=== PATIENT | male | born 1945 | race Caucasian/White ===

== ENCOUNTER 2017-03-20 09:42 | Day surgery (SDC) | payer OTHER ==
--- NOTE | 2017-02-23 10:46 | HP ---
PREOPERATIVE HISTORY AND PHYSICAL EXAM: DATE OF SURGERY/ADMISSION: 03/13/17 - [facility] AGE: 72. PROCEDURE: Left ring trigger finger release. WIRE TURNING MACHINE OPERATOR: Dr. Mead. CHIEF COMPLAINT: Left ring finger triggering. HISTORY OF PRESENT ILLNESS: This is a 72-year-old male who has had triggering in his left ring finger, locking, clicking, and pain since the beginning of 2015. He experiences most of the symptoms when he awakens in the morning. Sometimes his finger is locked in a flexed position and he has to use his other hand to return it to an extended position. He also experiences some catching and clicking throughout the course of the day. He did receive a cortisone injection for this problem back in June 2016 which was helpful; however, the symptoms have returned and at this point the patient is interested in proceeding with more definitive treatment for the trigger finger. Of note, he, back in October 2016, had an atrial flutter ablation and is followed by his master pilot, Dr. Mead. The patient is on Pradaxa and we will plan on him remaining on Pradaxa perioperatively. PAST MEDICAL HISTORY: 1. History of atrial flutter. 2. TIA x3 in 2014. 3. Hypercholesterolemia. PAST SURGICAL HISTORY: 1. Atrial flutter ablation in October 2016. 2. Bilateral shoulder surgeries by Dr. Wade. CURRENT MEDICATIONS: 1. Atorvastatin calcium 80 mg daily. 2. Magnesium 400 mg q.h.s. 3. Pradaxa 150 mg twice a day. ALLERGIES: No known drug allergies. FAMILY MEDICAL HISTORY: Heart disease, diabetes, and cancer. 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 He denies tobacco use. He denies recreational drug use. He does admit to alcohol use on regular occasion. REVIEW OF SYSTEMS: General: Negative for fevers, chills, or night sweats. No known anesthesia problems. HEENT: Negative for headache, lightheadedness, or syncopal episodes. Integumentary: Negative for abrasions, lesions, or open wounds. Cardiothoracic: Negative for hypertension. Negative for chest pain, palpitations, or edema. Pulmonary: Negative for shortness of breath with exertion, chronic cough, or COPD. GI: Negative for nausea, vomiting, diarrhea , constipation, or GERD. : Positive for urinary frequency. Negative for urgency, history of UTIs, or kidney problems. Musculoskeletal: Positive for current complaint. Otherwise negative. Neurological: Positive for history of TIA. Negative for history of seizures, paresthesias, or numbness. Endocrine: Negative for diabetes or thyroid issues. Hematologic: The patient is on Pradaxa and has easy bruising and easy bleeding secondary to that. He has no history of DVT or anemia. Infectious Disease: Negative for history of MRSA, hepatitis C, or HIV. PHYSICAL EXAMINATION GENERAL: Well-developed, well-nourished 72-year-old male in no acute distress. He is alert and oriented x3. VITAL SIGNS: Height 5 feet 8 inches, weight 179 pounds. Pulse rate 84, blood pressure 130/70. HEENT: Normocephalic, atraumatic. Pupils are equal, round, and reactive to light and accommodation. Extraocular movements are intact. NECK: Supple. No palpable lymph nodes. Throat is clear. PULMONARY: Lungs are clear to auscultation bilaterally. No wheezes, rales, or rhonchi. CARDIOTHORACIC: Regular rate and rhythm. S1, S2. No murmurs, rubs, or gallops. No edema. ABDOMEN: Positive bowel sounds. Soft, nontender. NEUROLOGICAL: Alert and oriented x3. Cranial nerves II through XII are intact. Sensation is intact to light touch. PERIPHERAL VASCULAR: 2+ radial and ulnar pulses. Negative Benji test. MUSCULOSKELETAL: On exam of the left hand, he has tenderness to palpation of the A1 km of the ring finger. He does not have locking with flexion, but has difficulty making a full tight fist. Neurovascular function is intact. IMPRESSION: Left ring finger trigger finger. PLAN: The patient is scheduled to undergo a left ring trigger finger release with Dr. Wade on 03/13/17. He will return to the office 10 to 14 days postop for followup and suture removal. A prescription for Ultracet was e-scribed to the patient's pharmacy for postoperative pain management. The patient will remain on Pradaxa perioperatively and we will get clearance to proceed with surgery from his master pilot, Dr. Mead. [place] MARQUEZ [id number]/[facility] #: [id number] ROGERIO
[~2017-03-20 09:42] MED LIST: Buffered Lidocaine 1% SYRIN* 3 ML/SYR SYRINGE INTRADERM ONE; Lidocaine 1% INJ* 10 MG/ML 30 ML SDV ONE
[2017-03-20] MEDS ORDERED: Lidocaine 2% PF * 5 ML VIAL ONE (10:35)
[2017-03-20] MEDS ORDERED: Propofol* 10 MG/ML 20 ML BTL IV PUSH ONE (10:35)
[2017-03-20 11:13] VITALS: BP 114/72
--- NOTE | 2017-03-20 23:10 | OP ---
DATE OF OPERATION: 03/20/17 [facility] DATE OF : 41 SURGEON: Ericka Wade MD AGRICULTURE SCIENCE TEACHER: [place] Perdue ANESTHESIOLOGIST: Hu Chapman DO ANESTHESIA: Local MAC. PRE-OP DIAGNOSIS: Left ring finger trigger finger. POST-OP DIAGNOSES: Left ring finger trigger finger and Dupuytren's nodule of the left hand. OPERATIVE PROCEDURE: Left ring finger trigger release and Dupuytren's nodule removal, left hand. ESTIMATED BLOOD LOSS: Zero. TOURNIQUET TIME: About 10 minutes. INDICATION FOR PROCEDURE: Carl is a 72-year-old man with clicking and locking of his left ring finger and a small mass in the palm of his left hand. He has failed conservative treatment and presents for trigger finger release of the left ring finger. DESCRIPTION OF PROCEDURE: The patient was brought to the operating room, was given a sedation anesthetic and a local infiltration of 10 cc of 1% plain lidocaine in the palm of his left hand. The skin of his left hand and forearm was prepped and draped in the usual sterile fashion. The hand and forearm were exsanguinated and the tourniquet elevated to 250 mmHg. A chevron incision was made, centered over the A1 km of the left ring finger. The mass appeared to be a Dupuytren's nodule and was carefully dissected away from the overlying skin and sent for pathology. The A1 km was then incised longitudinally completely releasing the FDS and FDP tendons, which were in very good condition. The wound was irrigated and skin edges were reapproximated with 4-0 nylon suture. The wound was dressed with Xeroform, 4x4, Webril, and an Elvis wrap. The patient tolerated the procedure well and was brought to the recovery room in good condition. [id number]/[facility] #: [id number] [facility] ISLANDA[facility]
== END 2017-03-20 11:30 | disposition home or self-care (01) ==
LOC: OREAST 09:42
PROVIDERS: ATTEND Orthopaedic Surgery
DX: M65.342 Trigger finger, left ring finger (principal); M72.0 Palmar fascial fibromatosis [Dupuytren]; Z86.73 Personal history of transient ischemic attack (TIA), and cerebral infarction without residual deficits; Z79.01 Long term (current) use of anticoagulants; I48.92 Unspecified atrial flutter
CPT/HCPCS: 88304; J2001; J2704

== ENCOUNTER 2019-02-22 17:17 | Emergency (ER) | payer OTHER ==
--- OUTSIDE RECORDS SUMMARY | 2019-02-22 17:39 | XMS REPORT | Continuity of Care Document ---
:1945 External Reference #:[id number] Author Name LonnyNoy Care Team Providers Name Role Phone Prabhjot Wang MD Primary Care Physician Unavailable Payers Date Identification Numbers Payment Provider Subscriber Effective: 2017 Policy Number: [id number] [employer] Jaclyn Lopez Group Number: [id number] [address] PayID: [id number] [place] [address] Expires: 2017 Policy Number: [id number] [employer] Jaclyn Lopez Group Number: [id number] [address] PayID: [id number] [place] [address] Advance Directives Description No Information Available Problems Date Description Provider Status Onset: 04/13/2015 Transient cerebral ischemia Andre Ayala M.D. Active Onset: 03/14/2018 Familial hypercholesterolemia Nanette Mead M.D. Active Onset: 03/13/2017 Mitral valve disorder Nanette Mead M.D. Active Onset: 10/06/2016 Atrial flutter Nanette Mead M.D. 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 Never smoked cigarettes. Recreational Drug Use Denies Drug Use Smoking Status Reviewed: 02/06/19 Patient is a former Smoked a pipe for a smoker year. Never smoked cigarettes. Exercise Type/Frequency Exercises regularly Exercise Type/Frequency Walks daily 1 to 1/2 miles while walking dog Exercise Type/Frequency Weight training 1 x week Exercise Type/Frequency treadmill 1 x week Allergies, Adverse Reactions, Alerts Description No Known Drug Allergies Medications Medication Date Status Form Strength Qnty SIG Indications Ordering Provider Warfarin 09/25/ Active Tablets 10mg 120tab once daily Nanette Sodium 2016 and as Alyce, directed M.DDeandre Warfarin 09/11/ Active Tablets 2.5mg 45tabs 1 tablet 3 Nanette Sodium 2016 per jae Mead with M.DDeandre 10 mg tablets and/or as directed. Atorvastatin / Active Tablets 80mg 1 by mouth Unknown Calcium 0000 every day Ultracet 03/12/ Hx Tablets 37.5-325mg 20tabs 1 tab by Ericka 2016 - ki Wade M.D. 09/12/ every 4-6 2016 hours as needed pain Tramadol 02/22/ Hx Tablets 37.5-325mg 20tabs 1 tab by Ericka Hydrochloride/ 2016 - mouth Trena Wade Acetaminophen 09/12/ every 4-6 2016 hours as needed pain No Active 09/04/ Hx Unknown Medications 2013 - 2014 Percocet 07/13/ Hx Tablets 5-325mg 40tabs 1-2 tabs Nery 2013 - by mouth Trena Booker 09/03/ q6 as 2013 needed pain Atorvastatin / Hx Unknown Calcium 0000 - 2013 Aspirin Ec / Hx Unknown Lo-Dose - 2013 Plavix / Hx Tablets 75mg 1 by mouth Unknown 0000 - every day 2015 Aspirin // Hx Tablets 81mg 1 by mouth Unknown 0000 - every day 2014 Magnesium / Hx Capsules 400mg 1 by mouth Unknown 0000 - qhs 2017 Pradaxa / Hx Capsules 150mg 1 cap by Unknown 0000 - mouth 09/06/ twice a 2017 day Medications Administered in Office Medication Date Status Form Strength Qnty SIG Indications Ordering Provider Depomedrol Administered Injection Shila 40MG 019 Bitting, [facility] Depomedrol Administered Injection Shila 40MG 018 Bitting, [facility] Depomedrol Administered Injection Shila 40MG 018 Bitting, [facility] Depomedrol Administered Injection Ericka 40MG 016 Trena Wade Immunizations Description No Information Available Vital Signs Date Vital Result Comment 02/06/2019 12:14pm Height 69 inches 5'9" Weight 180.00 lb BP Systolic 131 mmHg BP Diastolic 80 mmHg Respiratory Rate 16 /min Pain Level 2 BMI (Body Mass Index) 26.6 kg/m2 08/07/2018 2:26pm Height 69 inches 5'9" Weight 189.75 lb Heart Rate 56 /min BP Systolic Sitting 102 mmHg BP Diastolic Sitting 70 mmHg Respiratory Rate 16 /min Body Temperature 97.5 F Pain Level 2 intermittent 8 BMI (Body Mass Index) 28.0 kg/m2 03/14/2018 4:07pm Height 69 inches 5'9" Weight 198.00 lb without shoes BP Systolic Sitting 112 mmHg Rue lg cuff BP Diastolic Sitting 70 mmHg Rue lg cuff BP Systolic Standing 118 mmHg Rue lg cuff BP Diastolic Standing 82 mmHg Rue lg cuff BMI (Body Mass Index) 29.2 kg/m2 10/15/2017 12:01pm Height 69 inches 5'9" Weight 180.00 lb BP Systolic 118 mmHg BP Diastolic 80 mmHg Body Temperature 95.2 F Pain Level 0 BMI (Body Mass Index) 26.6 kg/m2 09/13/2017 1:54pm Height 69 inches 5'9" Weight 180.00 lb Heart Rate 60 /min BP Systolic 130 mmHg BP Diastolic 68 mmHg Body Temperature 95.4 F Pain Level 0 BMI (Body Mass Index) 26.6 kg/m2 08/16/2017 1:53pm Height 69 inches 5'9" Weight 180.00 lb Respiratory Rate 18 /min Body Temperature 97.1 F BMI (Body Mass Index) 26.6 kg/m2 04/26/2017 1:35pm Height 69 inches 5'9" Weight 180.00 lb Heart Rate 54 /min BP Systolic 122 mmHg BP Diastolic 72 mmHg Body Temperature 96.6 F BMI (Body Mass Index) 26.6 kg/m2 03/29/2017 1:21pm Height 69 inches 5'9" Weight 180.00 lb Heart Rate 56 /min BP Systolic 113 mmHg BP Diastolic 70 mmHg Body Temperature 97.4 F BMI (Body Mass Index) 26.6 kg/m2 03/13/2017 10:55am Height 68 inches 5'8" Weight 187.00 lb no shoes Heart Rate 60 /min BP Systolic Sitting 130 mmHg Rue reg cuff BP Diastolic Sitting 66 mmHg Rue reg cuff BP Systolic Standing 126 mmHg Rue reg cuff BP Diastolic Standing 70 mmHg Rue reg cuff Respiratory Rate 17 /min BMI (Body Mass Index) 28.4 kg/m2 Ejection Fraction 55-60% 04/07/2015-echo 02/22/2017 1:45pm Height 68 inches 5'8" Weight 179.00 lb Heart Rate 84 /min BP Systolic 130 mmHg BP Diastolic 70 mmHg Respiratory Rate 18 /min Body Temperature 95.2 F Pain Level 2 BMI (Body Mass Index) 27.2 kg/m2 11/16/2016 3:06pm Height 68 inches 5'8" Weight 179.50 lb no shoes Heart Rate 70 /min BP Systolic Sitting 134 mmHg Rue reg cuff BP Diastolic Sitting 68 mmHg Rue reg cuff BP Systolic Standing 124 mmHg Rue reg cuff BP Diastolic Standing 68 mmHg Rue reg cuff Respiratory Rate 16 /min BMI (Body Mass Index) 27.3 kg/m2 Ejection Fraction 55-60% date 04/07/2015 ECHO 10/06/2016 3:39pm Height 68 inches 5'8" Weight 183.00 lb w/o shoes Heart Rate 76 /min BP Systolic 116 mmHg Lue, reg cuff BP Diastolic 74 mmHg Lue, reg cuff BP Systolic Sitting 120 mmHg Rue, reg cuff BP Diastolic Sitting 76 mmHg Rue, reg cuff BP Systolic Standing 122 mmHg Rue BP Diastolic Standing 80 mmHg Rue Respiratory Rate 16 /min BMI (Body Mass Index) 27.8 kg/m2 Ejection Fraction 55-60% as of 04/07/15 Les 07/06/2016 2:39pm Height 69.75 inches 5'9.75" Weight 190.00 lb Heart Rate 72 /min BP Systolic 119 mmHg BP Diastolic 64 mmHg Pain Level 7 BMI (Body Mass Index) 27.5 kg/m2 05/10/2015 2:18pm Height 69.5 inches 5'9.50" Weight 190.00 lb Heart Rate 49 /min BP Systolic 128 mmHg BP Diastolic 79 mmHg BMI (Body Mass Index) 27.7 kg/m2 04/30/2015 11:20am Height 70 inches 5'10" Weight 190.00 lb Heart Rate 56 /min BP Systolic Sitting 118 mmHg BP Diastolic Sitting 60 mmHg Respiratory Rate 16 /min BMI (Body Mass Index) 27.3 kg/m2 04/13/2015 2:04pm Height 70 inches 5'10" Weight 191.00 lb Heart Rate 56 /min BP Systolic Sitting 124 mmHg BP Diastolic Sitting 74 mmHg Respiratory Rate 16 /min BMI (Body Mass Index) 27.4 kg/m2 10/09/2014 9:36am Height 70 inches 5'10" Weight 185.00 lb Pain Level 1 BMI (Body Mass Index) 26.5 kg/m2 09/04/2014 2:57pm Height 70 inches 5'10" Weight 185.00 lb Pain Level 1 BMI (Body Mass Index) 26.5 kg/m2 08/07/2014 3:06pm Height 70 inches 5'10" Weight 185.00 lb Pain Level 3 BMI (Body Mass Index) 26.5 kg/m2 07/24/2014 2:46pm Height 70 inches 5'10" Weight 185.00 lb Heart Rate 57 /min BP Systolic 117 mmHg BP Diastolic 67 mmHg BMI (Body Mass Index) 26.5 kg/m2 07/17/2014 1:14pm Height 70 inches 5'10" Weight 185.00 lb Pain Level 1 BMI (Body Mass Index) 26.5 kg/m2 07/13/2014 2:52pm Height 70 inches 5'10" Weight 185.00 lb Heart Rate 61 /min BP Systolic 142 mmHg BP Diastolic 82 mmHg BMI (Body Mass Index) 26.5 kg/m2 Results Test Date Facility Test Result H/L Range Note Inr/Protime 01/29/2019 [facility] Inr 2.16 High 0.77-1.02 [place] [address] [phone] Inr/Protime 01/01/2019 [facility] Inr 2.24 High 0.77-1.02 [place] [address] [phone] Inr/Protime 12/20/2018 [facility] Inr 1.59 High 0.77-1.[address] [place] [address] [phone] Inr/Protime 12/12/2018 [facility] Inr 2.44 High 0.77-1.[address] [place] [address] [phone] Inr/Protime 11/09/2018 [facility] Inr 2.57 High 0.77-1.[address] [place] [address] [phone] Inr/Protime 10/11/2018 [facility] Inr 2.55 High 0.77-1.[address] [place] [address] [phone] Inr/Protime 09/13/2018 [facility] Inr 2.57 High 0.77-1.[address] [place] [address] [phone] Inr/Protime 08/16/2018 [facility] Inr 2.43 High 0.77-1.[address] [place] [address] [phone] Inr/Protime 08/06/2018 [facility] Inr 1.87 High 0.77-1.[address] [place] [address] [phone] Inr/Protime 07/08/2018 [facility] Inr 2.33 High 0.77-1.[address] [place] [address] [phone] Inr/Protime 06/13/2018 [facility] Inr 2.48 High 0.77-1.[address] [place] [address] [phone] Inr/Protime 05/29/2018 [facility] Inr 2.40 High 0.77-1.[address] [place] [address] [phone] Inr/Protime 05/14/2018 [facility] Inr 3.37 High 0.77-1.[address] [place] [address] [phone] Inr/Protime 05/01/2018 [facility] Inr 3.71 High 0.77-1.[address] [place] [address] [phone] Inr/Protime 04/08/2018 [facility] Inr 2.80 High 0.77-1.[address] [place] [address] [phone] Inr/Protime 03/29/2018 [facility] Inr 1.56 High 0.77-1.[address] [place] [address] [phone] Inr/Protime 03/11/2018 [facility] Inr 2.11 High 0.77-1.[address] [place] [address] [phone] Inr/Protime 02/22/2018 [facility] Inr 2.36 High 0.77-1.[address] [place] [address] [phone] Inr/Protime 02/07/2018 [facility] Inr 1.89 High 0.77-1.[address] [place] [address] [phone] Inr/Protime 01/16/2018 [facility] Inr 1.94 High 0.77-1.[address] [place] [address] [phone] Inr/Protime 12/19/2017 [facility] Inr 2.07 High 0.77-1.[address] [place] [address] [phone] Inr/Protime 11/28/2017 [facility] Inr 2.10 High 0.77-1.[address] [place] [address] [phone] Inr/Protime 11/13/2017 [facility] Inr 1.96 High 0.77-1.[address] [place] [address] [phone] Inr/Protime 10/30/2017 [facility] Inr 2.08 High 0.77-1.[address] [place] [address] [phone] Inr/Protime 10/22/2017 [facility] Inr 2.37 High 0.77-1.[address] [place] [address] [phone] Inr/Protime 10/15/2017 [facility] Inr 2.46 High 0.89-1.11 [address] [place] [address] [phone] Inr/Protime 10/08/2017 [facility] Inr 1.91 High 0.89-1.11 [address] [place] [address] [phone] Inr/Protime 10/04/2017 [facility] Inr 2.05 High 0.89-1.11 [address] [place] [address] [phone] Inr/Protime 10/01/2017 [facility] Inr 1.92 High 0.89-1.11 [address] [place] [address] [phone] Inr/Protime 09/25/2017 [facility] Inr 1.26 High 0.89-1.11 [address] [place] [address] [phone] Comp Metabolic 09/25/2017 [facility] Sodium 139 mmol/L N 133- 145 Panel 101 [place] [address] [phone] Potassium 4.4 mmol/L N 3.5-5.0 Chloride 107 mmol/L N 101-111 Co2 Carbon Dioxide 29 mmol/L N 22-32 Anion Gap 3 mmol/L N 2-11 Glucose 126 mg/dL High 70-100 Blood Urea Nitrogen 14 mg/dL N 6-24 Creatinine 0.83 mg/dL N 0.67-1.17 BUN/Creatinine Ratio 16.9 N 8-20 Calcium 9.1 mg/dL N 8.6-10.3 Total Protein 6.4 g/dL N 6.4-8.9 Albumin 3.9 g/dL N 3.2-5.2 Globulin 2.5 g/dL N 2-4 Albumin/Globulin Ratio 1.6 N 1-3 Total Bilirubin 0.60 mg/dL N 0.2-1.0 Alkaline Phosphatase 77 U/L N 34-104 Alt 22 U/L N 7-52 Ast 20 U/L N 13-39 Egfr Non- 90.6 N >60 Egfr 116.5 N >60 4 Lipid Profile 09/25/2017 [facility] Triglycerides 59 mg/dL N 5 (Trig/Chol/HDL) [address] [place] [address] [phone] Cholesterol 219 mg/dL N 6 HDL Cholesterol 65.8 mg/dL N 7 LDL Cholesterol 141 mg/dL N 8 Laboratory test 09/25/2017 [facility] Hemoglobin A1c 6.3 % High 4.0-5.[address] (Glyco HGB) [place] [address] [phone] Inr/Protime 09/20/2017 [facility] Inr 1.16 High 0.89-1.[address] [place] [address] [phone] Basic Metabolic 09/07/2017 [facility] Sodium 138 N 133-145 Panel [facility] mmol/[place] [address] [phone] Potassium 4.4 mmol/L N 3.5-5.0 Chloride 105 mmol/L N 101-111 Co2 Carbon Dioxide 29 mmol/L N 22-32 Anion Gap 4 mmol/L N 2-11 Glucose 95 mg/dL N 70-100 Blood Urea Nitrogen 16 mg/dL N 6-24 Creatinine 0.79 mg/dL N 0.67-1.17 BUN/Creatinine Ratio 20.3 High 8-20 Calcium 9.0 mg/dL N 8.6-10.3 Egfr Non- 95.9 N >60 Egfr 123.3 N >60 10 Laboratory test 03/20/2017 [facility] Surgical SEE RESULT 11, 12 finding 101 [facility] [place] [address] [phone] Laboratory test 03/20/2017 [facility] Point of Care 120 mg/dL High 74-[address] [place] [address] DRIVE Glucose 06 [place] [address] [phone] 1 Please note the change in INR reference range effective 17. 2 Please note the change in INR reference range effective 17. 3 Please note the change in INR reference range effective 17. 4 Because ethnic data is not always readily available, this report includes an eGFR for both -Americans and non- Americans. The National Kidney Disease Education Program (NKDEP) does not endorse the use of the MDRD equation for patients that are not between the ages of 18 and 70, are , have extremes of body size, muscle mass, or nutritional status, or are non- or non-. According to the National Kidney Foundation, irrespective of diagnosis, the stage of the disease is based on the level of kidney function: Stage Description GFR(mL/min/1.73 m(2)) 1 Kidney damage with normal or decreased GFR 90 2 Kidney damage with mild decrease in GFR 60-89 3 Moderate decrease in GFR 30-59 4 Severe decrease in GFR 15-29 5 Kidney failure <15 (or dialysis) 5 Desirable: <150 Borderline High: 150-199 High: 200-499 Very High: >500 6 Desirable: <200 Borderline High: 200-239 High: >239 7 Low: <40 Desirable: 40-60 High: >60 8 Desirable: <100 Near Optimal: 100-129 Borderline High: 130-159 High: 160-189 Very High: >189 9 Therapeutic target for the treatment of diabetes mellitus patients is <7% HBA1C, and in selective patients <6.0%. Please refer to [place] [employer] diabetic care guidelines for further information. 10 Because ethnic data is not always readily available, this report includes an eGFR for both -Americans and non- Americans. The National Kidney Disease Education Program (NKDEP) does not endorse the use of the MDRD equation for patients that are not between the ages of 18 and 70, are , have extremes of body size, muscle mass, or nutritional status, or are non- or non-. According to the National Kidney Foundation, irrespective of diagnosis, the stage of the disease is based on the level of kidney function: Stage Description GFR(mL/min/1.73 m(2)) 1 Kidney damage with normal or decreased GFR 90 2 Kidney damage with mild decrease in GFR 60-89 3 Moderate decrease in GFR 30-59 4 Severe decrease in GFR 15-29 5 Kidney failure <15 (or dialysis) 11 [id number] SEE RESULT BELOW Name: JACLYN LOPEZ : [address]: Ericka Wade MD Acct: [id number] Unit: [id number] AGE: 72 Location: [facility] Re03/20/17 SEX: M Status: DEP [facility] SPEC: [id number] PAVITHRA: 03/20/[address]: Ericka Wade MD REQ: [id number] RECD: 03/20/17 STATUS: SOUT _ ORDERED: LEVEL 3 COMMENTS: [id number] FINAL DIAGNOSIS Soft tissue, left ring finger, excision: -- 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 PRE-OPERATIVE DIAGNOSIS Left ring trigger finger GROSS DESCRIPTION The specimen is received in formalin labeled, Left Hand Mass Dupuytren's Nodule, and consists of a 0.6 x 0.5 x 0.2 cm yellow-white rubbery to indurated fibrous tissue fragment. One side is inked, the specimen is trisected and entirely submitted in one cassette. Signed (signature on file) Andre Gill MD 1414 END OF REPORT * ML=Testing performed at Main Lab DEPARTMENT OF PATHOLOGY, [address] [place], [place] [id number] Andre Gill M.D. Director [facility] # [id number] 13 [employer] Sawyer: [id number] Procedures Date Code Description Status 02/06/2019 67060 Injection Single Tendon Origin/Insertion Completed 08/07/2018 86316 Inject Tendon Sheath Or Ligament Aponeurosis Eg Plantar Completed Fascia 08/07/2018 21675 Inject Tendon Sheath Or Ligament Aponeurosis Eg Plantar Completed Fascia 03/14/2018 89595 EKG Tracing & Interpretation Completed 01/30/2018 61169653 Colonoscopy Completed 03/20/2017 05109 Trigger Finger Release Incision / Tendon Sheath Completed Incision 03/20/2017 29870 Trigger Finger Release Incision / Tendon Sheath Completed Incision 03/13/2017 95408 EKG Tracing & Interpretation Completed 11/16/2016 81910 EKG Tracing & Interpretation Completed 10/06/2016 86759 EKG Tracing & Interpretation Completed 07/06/2016 15342 Inject Tendon Sheath Or Ligament Aponeurosis Eg Plantar Completed Fascia 04/23/2015 31274 Holter Monitoring 24 HR New Completed 04/19/2015 45966 ECG Monitor/Recording W/Visual Superimposition Scanning Completed 04/07/2015 20885 Color Flow Doppler/Interp & Reprt Completed 04/07/2015 47681 Pulse Wave/Continuous-Interp.RPT Completed 04/07/2015 29581 Echocardiography, Transesophageal, Real Time W/Image 2D Completed W/W/O M-M 10/09/2014 26621 Rad Exam; Ankle Comp Completed 09/04/2014 66264 Rad Exam; Ankle Limited Completed 08/07/2014 48018 Rad Exam; Ankle Comp Completed 07/24/2014 08614 Rad Exam; Ankle Limited Completed 07/17/2014 36971 Rad Exam; Ankle Comp Completed 07/17/2014 14142 application of short leg splint Completed 07/13/2014 33229 Rad Exam; Ankle Comp Completed 07/13/2014 50031 CLSD TX Distal Fib FX (Lateral Malleolus) w/o Completed manipulation 07/13/2014 62257 Closed TX Prox/Shaft Fibula W/O Manip Completed Encounters Type Date Location Provider Dx Diagnosis Office Visit 08/07/2018 Orthopedic Shila Riddle, M65.351 Trigger finger, 2:00p Services Of [facility] right little finger M65.341 Trigger finger, right ring finger Office Visit 03/14/2018 4:00p [place] [facility] Nanette Mead I48.3 Typical atrial Of Care Process Manager M.D. flutter E78.01 Familial hypercholesterolemia G47.30 Sleep apnea, unspecified R53.83 Other fatigue Office Visit 10/15/2017 11:45a Orthopedic Shila Riddle, M20.012 Mallet finger Services Of [facility] of left C.M.A. finger(s) Office Visit 09/13/2017 1:30p Orthopedic Shila Riddle M20.012 Mallet finger Services Of [facility] of left C.M.A. finger(s) Office Visit 08/16/2017 1:45p Orthopedic Shila Riddle M20.012 Mallet finger Services Of [facility] of left C.M.A. finger(s) Office Visit 03/13/2017 10:45a [place] [facility] Nanette Mead, I48.3 Typical atrial Of Care Process Manager M.D. flutter I34.0 Nonrheumatic mitral (valve) insufficiency G45.9 Transient cerebral ischemic attack, unspecified E78.00 Pure hypercholesterolemia, unspecified Office Visit 02/22/2017 1:30p Orthopedic Denise Gauthier.342 Trigger Services Of M.D. finger, left C.M.A. ring finger Office Visit 11/16/2016 3:00p [place] [facility] Nanette Mead I48.3 Typical atrial Of Care Process Manager M.D. flutter R53.83 Other fatigue Office Visit 10/06/2016 3:15p [place] [facility] Nanette Mead I48.3 Typical atrial Of Care Process Manager M.D. flutter G45.9 Transient cerebral ischemic attack, unspecified Z86.73 Prsnl hx of TIA (TIA), and cereb infrc w/o resid deficits Office Visit 07/06/2016 Orthopedic Services Ericka Hager5.Kd Trigger finger, 2:30p Of [facility] Wade M.D. left ring finger Office Visit 05/10/2015 Orthopedic Services Cole Ro, 726.72 Tendinitis 2:00p Of [facility] Albrecht Tibialis Office Visit 04/30/2015 Neurohospitalist Andre Rojas.9 TIA Ischemia 11:00a Clinic Trena Ayala Cerebral Transient Unspec Office Visit 04/13/2015 [facility] S. 435.9 TIA Ischemia 2:00p Services Of Monty Ayala M.D. Cerebral Transient Unspec Plan of Treatment 02/06/2019 - Shila Riddle, [facility]-CM65.351 Trigger finger, right little fingerFollow up:Follow up: As needed
--- NOTE | 2019-02-22 18:04 | ED ---
Influenza-Like Illness - HPI Summary HPI Summary: This patient is a 74 year old M presenting to [facility] accompanied by a woman with a chief complaint of coughing up blood since 15:30. Patient reports nausea and congestion. Patient denies fever. The patient took 5 minutes to get the blood out of his body, with about 2-3 episodes. The patient has had a persistent, powerful cough for several days and decided to come to the ED when he saw blood. PMHX Afib. RX Warfarin. - History of Current Complaint Chief Complaint: EDGeneral Time Seen by Provider: 02/22/19 17:56 Hx Obtained From: Patient Onset/Duration: Sudden Onset, Lasting Hours Associated Signs & Symptoms: Cough, Nasal Congestion - Allergy/Home Medications Allergies/Adverse Reactions: Allergies Allergy/AdvReac Type Severity Reaction Status Date / Time No Known Allergies Allergy Verified 02/22/19 17:20 PMH/Surg Hx/FS Hx/Imm Hx Endocrine/Hematology History: Reports: Hx Diabetes - BORDERLINE- DIET AND EXERCISE CONTROLLED Cardiovascular History: Reports: Hx Atrial Fibrillation, Hx Valvular Heart Disease - "MINOR LEAKAGE", Other Cardiovascular Problems/Disorders - ATRIAL FLUTTER-DX 08/2016-DR. 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 Sensory History: Reports: Hx Cataracts - BILATERAL, Hx Contacts or Glasses - INSTRUCTS GIVEN Denies: Hx Hearing Aid Opthamlomology History: Reports: Hx Cataracts - BILATERAL, Hx Contacts or Glasses - INSTRUCTS GIVEN Psychiatric History: Denies: Hx Panic Disorder - Surgical History Surgery Procedure, Year, and Place: BILATERAL SHOULDER SURGERY SUPRA SPINATUS[place] [facility] [place] ZYGOMATIC ARCH REPAIR(NO METAL)-1968[place] Hx Anesthesia Reactions: No Infectious Disease History: No Infectious Disease History: Denies: Traveled Outside the [place] in Last 30 Days - Family History Known Family History: Positive: Cardiac Disease - Social History Lives: With Family Alcohol Use: Daily Alcohol Amount: 1-2 PER DAY Substance Use Type: Reports: None Smoking Status (MU): Former Smoker Amount Used/How Often: PIPE<1 YEAR X Have You Smoked in the Last Year: No Review of Systems Negative: Fever Positive: Nasal Discharge Positive: Cough - with blood Positive: Nausea All Other Systems Reviewed And Are Negative: Yes Physical Exam - Summary Physical Exam Summary: VITAL SIGNS: Reviewed. GENERAL: Patient is a well-developed and nourished male who is lying comfortable in the stretcher. Patient is not in any acute respiratory distress. HEAD AND FACE: No signs of trauma. No ecchymosis, hematomas or skull depressions. No sinus tenderness. EYES: PERRLA, EOMI x 2, No injected conjunctiva, no nystagmus. EARS: Hearing grossly intact. Ear canals and tympanic membranes are within normal limits. MOUTH: Oropharynx within normal limits. NECK: Supple, trachea is midline, no adenopathy, no JVD, no carotid bruit, no c- spine tenderness, neck with full ROM. CHEST: Symmetric, no tenderness at palpation LUNGS: Clear to auscultation bilaterally. No wheezing or crackles. CVS: Regular rate and rhythm, S1 and S2 present, no murmurs or gallops appreciated. ABDOMEN: Soft, non-tender. No signs of distention. No rebound no guarding, and no masses palpated. Bowel sounds are normal. EXTREMITIES: FROM in all major joints, no edema, no cyanosis or clubbing. NEURO: Alert and oriented x 3. No acute neurological deficits. Speech is normal and follows commands. SKIN: Dry and warm Triage Information Reviewed: Yes Vital Signs On Initial Exam: Initial Vitals Temp Pulse Resp BP Pulse Ox 99.1 F 61 16 130/80 96 02/22/19 17:21 02/22/19 17:21 02/22/19 17:21 02/22/19 17:21 02/22/19 17:21 Vital Signs Reviewed: Yes Diagnostics - Vital Signs Vital Signs Temp Pulse Resp BP Pulse Ox 02/22/19 17:21 99.1 F 61 16 130/80 96 - Laboratory Result Diagrams: 02/22/19 18:38 02/22/19 18:38 Lab Statement: Any lab studies that have been ordered have been reviewed, and results considered in the medical decision making process. - Radiology CXR Radiology Interpretation Completed By: ED Physician Summary of Radiographic Findings: No acute cardiopulmonary disease, pending official radiology report. - EKG 11:11 Cardiac Rate: NL - 63 bpm EKG Rhythm: Sinus Rhythm Summary of EKG Findings: Prolonged MA interval, no STEMI Flu Symptom Course/Dx - Course Assessment/Plan: Patient is a 74-year-old male who presents to the emergency department with chief complaint of having hemoptysis. The patient reports that he is taking Coumadin for atrial fibrillation. Patient reports it was just streaks of blood with cough and only for approximately 5 minutes. Chest x-ray shows no acute cardio thoracic pathology. EKG is a normal sinus rhythm without any stimulations. Blood work is still pending. The patient will be signed out to she change to Dr. Collins to follow-up the lower results and further disposition of the patient. The patient is hemodynamically stable alert and oriented 3. - Diagnoses Provider Diagnoses: Cough with hemoptysis Discharge - Sign-Out/Discharge Documenting (check all that apply): Sign-Out Patient Signing out patient TO: Kody Hoyos Patient Received Moderate/Deep Sedation with Procedure: No - Discharge Plan Condition: Good Disposition: HOME Prescriptions: Azithromycin TAB* [Zithromax TAB (Z-NIKKI) 250 mg #6 tabs] 2 tab PO .TODAY, THEN 1 DAILY #1 nikki Hydrocodone/Chlorphen P-Stirex [Tussionex Pennkinetic Susp] 5 ml PO BEDTIME PRN #30 ml MDD 5 ml PRN Reason: Cough Patient Education Materials: Acute Bronchitis (ED) Referrals: Prabhjot Wang MD [Primary Care Provider] - 2 Weeks (if not resolved) Additional Instructions: Typically it takes 2-3 weeks for the cough to completely resolve with this problem. If you continue to have cough, especially if bloody phlegm is coming up , you should have further testing with your PCP. - Billing Disposition and Condition Condition: GOOD Disposition: Home - Attestation Statements Document Initiated by Krysta: Yes Documenting Scribe: Herman Moreau Provider For Whom Krysta is Documenting (Include Credential): Luis Romero MD Scribe Attestation: Herman Petty scribed for Luis Romero MD on 02/23/19 at 0710. Scribe Documentation Reviewed: Yes Provider Attestation: The documentation as recorded by the Herman muñoz accurately reflects the service I personally performed and the decisions made by me, Luis Romero MD Status of Scribe Document: Viewed
[2019-02-22 18:49] LABS: ABS Basophils 0 10^3/ul (0-0.2); ABS Eosinophils 0.1 10^3/ul (0-0.6); ABS Lymphocytes 1.1 10^3/ul (1.0-4.8); ABS Monocytes 0.9 10^3/ul (0-0.8); ABS Neutrophils 4.7 10^3/ul (1.5-7.7); ABS Nucleated RBC 0 10^3/ul; Eosinophil % 1.5 %; Hematocrit 43 % (36-46); Hemoglobin 14.5 g/dL (14.0-18.0); Lymphocyte % 15.7 %; Mean Corpuscular HGB Conc 34 g/dL (31-36); Mean Corpuscular Hemoglobin 32 pg (27-31); Mean Corpuscular Volume 95 fL (80-94); Mean Platelet Volume 8.2 fL (7.4-10.4); Nucleated Red Blood Cells % 0; Platelet Count 180 10^3/uL (150-450); Red Blood Count 4.52 10^6 /uL (4.18-5.48); Red Cell Distribution Width 13 % (10.5-15); White Blood Count 6.8 10^3/uL (3.5-10.8)
[2019-02-22 18:55] LABS: INR 2.25 (0.77-1.02)
[2019-02-22 19:03] LABS: Albumin/Globulin Ratio 1.7 (1-3); BUN/Creatinine Ratio 15.7 (8-20); Calcium 8.8 mg/dL (8.6-10.3); EGFR Non-African American 90.1 (>60); Globulin 2.3 g/dL (2-4); Potassium 4.2 mmol/L (3.5-5.0); Total Bilirubin 0.6 mg/dL (0.2-1.0); Total Protein 6.3 g/dL (6.4-8.9)
--- NOTE | 2019-02-22 19:04 | ED ---
Progress - Progress Note Progress Note: This patient was signed out from Dr. Romero to Dr. Hoyos upon shift change at 19 :00 02/22/19 pending lab results and disposition. Bloodwork, chemistries and urines obtained and are WNL. The patient tested positive for influenza A. The patient will be discharged with prescriptions for Zithromax and Hydrocodone. The patient is agreeable with this plan. Course/Dx - Course Course Of Treatment: This patient was signed out from Dr. Romero to Dr. Hoyos upon shift change at 19:00 02/22/19 pending lab results and disposition. Bloodwork, chemistries and urines obtained and are WNL. The patient tested positive for influenza A. The patient will be discharged with prescriptions for Zithromax and Hydrocodone. The patient is agreeable with this plan. - Diagnoses Provider Diagnoses: Cough with hemoptysis Discharge - Sign-Out/Discharge Documenting (check all that apply): Patient Departure - DC Patient Received Moderate/Deep Sedation with Procedure: No - Discharge Plan Condition: Good Disposition: HOME Prescriptions: Azithromycin TAB* [Zithromax TAB (Z-NIKKI) 250 mg #6 tabs] 2 tab PO .TODAY, THEN 1 DAILY #1 nikki Hydrocodone/Chlorphen P-Stirex [Tussionex Pennkinetic Susp] 5 ml PO BEDTIME PRN #30 ml MDD 5 ml PRN Reason: Cough Patient Education Materials: Acute Bronchitis (ED) Referrals: Prabhjot Wang MD [Primary Care Provider] - 2 Weeks (if not resolved) Additional Instructions: Typically it takes 2-3 weeks for the cough to completely resolve with this problem. If you continue to have cough, especially if bloody phlegm is coming up , you should have further testing with your PCP. - Billing Disposition and Condition Condition: GOOD Disposition: Home - Attestation Statements Document Initiated by Krysta: Yes Documenting Scribe: David Pichardo Provider For Whom Krysta is Documenting (Include Credential): Kody Hoyos MD Scribe Attestation: David Petty, scribed for Kody Hoyos MD on 02/24/19 at 1255. Scribe Documentation Reviewed: Yes Provider Attestation: The documentation as recorded by the David muñoz accurately reflects the service I personally performed and the decisions made by Kody ojeda MD Status of Scribe Document: Viewed
[2019-02-22 19:55] LABS: Urine Appearance Clear; Urine Bilirubin Negative (Negative); Urine Blood Negative (Negative); Urine Color Yellow; Urine Glucose Negative (Negative); Urine Ketones Negative (Negative); Urine Nitrite Negative (Negative); Urine Protein Negative (Negative); Urine Specific Gravity 1.009 (1.010-1.030); Urine Urobilinogen Negative (Negative)
[2019-02-22 19:59] LABS: Influenza A Molecular POSITIVE (Negative)
[2019-02-22 20:20] VITALS: BP 157/86
== END 2019-02-22 20:10 | disposition home or self-care (01) ==
LOC: ED 17:17
DX: R04.2 Hemoptysis (principal); I48.91 Unspecified atrial fibrillation; Z79.01 Long term (current) use of anticoagulants; Z87.891 Personal history of nicotine dependence
CPT/HCPCS: 36415; 71046; 80053; 81003; 83605; 85025; 85610; 85730; 93005; 99283

== ENCOUNTER 2019-03-11 16:58 | Emergency (ER) | payer OTHER ==
--- NOTE | 2019-03-11 17:00 | UC ---
Laceration HPI - HPI Summary HPI Summary: 74 yo male presents with laceration to left eyebrow. He tells me that around 0330 this morning he went to roll over in bed and rolled off his bed and his left eyebrow hit the corner of the nightstand. He sustained a small laceration here. His applied liquid bandage and he went back to sleep. He has been feeling well all day, but his convinced him to come to to get the laceration checked out. He believes he is up to date on his tetanus. Denies LOC , dizziness, headache, vision change, vomiting. He is on coumadin for hx of CVA. - History Of Current Complaint Stated Complaint: LACERATION Time Seen by Provider: 03/11/19 17:00 Hx Obtained From: Patient Laceration Location: Face Onset/Duration: Sudden Onset Severity: Mild Pain Intensity: 1 Pain Scale Used: 0-10 Numeric - Allergies/Home Medications Allergies/Adverse Reactions: Allergies Allergy/AdvReac Type Severity Reaction Status Date / Time No Known Allergies Allergy Verified 03/11/19 17:05 PMH/Surg Hx/FS Hx/Imm Hx - Additional Past Medical History Additional PMH: CVA Endocrine History: Dyslipidemia - Surgical History Surgical History: Yes Surgery Procedure, Year, and Place: BILATERAL SHOULDER SURGERY SUPRA SPINATUS- [facility]; LT ZYGOMATIC ARCH REPAIR(NO METAL)-1968-[place] - Family History Known Family History: Positive: Cardiac Disease - Social History Occupation: Retired Lives: With Family Alcohol Use: Daily Alcohol Amount: 1-2 PER DAY Substance Use Type: None Smoking Status (MU): Former Smoker Amount Used/How Often: PIPE<1 YEAR X Have You Smoked in the Last Year: No When Did the Patient Quit Smoking/Using Tobacco: 45 YEARS Review of Systems All Other Systems Reviewed And Are Negative: Yes Constitutional: Positive: Negative Skin: Positive: Other - Laceration left eyebrow Respiratory: Positive: Negative Cardiovascular: Positive: Negative Gastrointestinal: Positive: Negative Neurovascular: Positive: Negative Neurological: Positive: Negative Psychological: Positive: Negative Physical Exam - Summary Physical Exam Summary: GENERAL: NAD. WDWN. No pain distress. SKIN: Lateral left eyebrow with 5mm laceration in good approximation with liquid bandage applied. No bleeding or ecchymosis. HEENT: Head: See skin Eyes: PERRLA. EOM intact. NECK: Supple. Nontender. FROM CHEST: No accessory muscle use. Breathing comfortably and in no distress. CV: Pulses intact. Brisk cap refill. MSK: FROM and 5/5 strength throughout. No edema. NEURO: AAx3 PSYCH: Age appropriate behavior. Triage Information Reviewed: Yes Vital Signs: Vital Signs: Temp Pulse Resp BP Pulse Ox 98.5 F 54 18 100/68 95 03/11/19 17:03 03/11/19 17:03 03/11/19 17:03 03/11/19 17:03 03/11/19 17:03 Vital Signs Reviewed: Yes Laceration Course/Dx - Course/Dx Course Of Treatment: Given his head injury on coumadin, a CT scan of the brain was ordered to r/o underlying bleed. CT: IMPRESSION: NO ACUTE INTRACRANIAL PATHOLOGY. Wound appear well cleaned and well approximated with liquid bandage. Advised pt to apply a band-aid to the area and apply a thin layer of liquid bandage for the next few days until well healed. - Diagnosis Provider Diagnosis: Laceration of left eyebrow, Head injury Discharge - Sign-Out/Discharge Documenting (check all that apply): Patient Departure All imaging exams completed and their final reports reviewed: Yes - Discharge Plan Condition: Stable Disposition: HOME Patient Education Materials: Skin Adhesive Care (ED) Referrals: Prabhjot Wang MD [Primary Care Provider] - Additional Instructions: If you develop a fever, shortness of breath, chest pain, new or worsening symptoms - please call your PCP or go to the ED. Apply a thin layer of the Nu-skin daily for the next 2-3 days until the area is well healed - Billing Disposition and Condition Condition: STABLE Disposition: Home - Attestation Statements Provider Attestation: Pt not examined by me. I was available for consult.
[2019-03-11 17:12] VITALS: BP 100/68
== END 2019-03-11 18:35 | disposition home or self-care (01) ==
LOC: UCEAST 16:58
DX: S01.112A Laceration without foreign body of left eyelid and periocular area, initial encounter (principal); S09.90XA Unspecified injury of head, initial encounter; W06.XXXA Fall from bed, initial encounter; Y92.003 Bedroom of unspecified non-institutional (private) residence as the place of occurrence of the external cause; E78.5 Hyperlipidemia, unspecified; Z86.73 Personal history of transient ischemic attack (TIA), and cerebral infarction without residual deficits; Z87.891 Personal history of nicotine dependence
CPT/HCPCS: 70450; 99212; G0463